=== PATIENT | male | born 1950 | race Caucasian/White ===

== ENCOUNTER 2016-06-05 00:40 | Emergency (ER) | payer OTHER ==
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
[~2016-06-05 00:40] MED LIST: ASPIRIN PO; BACTRIM DS TABL1 TAB PO; CEFDINIR300 MG; CLARITIN10 M2 PO; CLARITIN10 MG PO; DETROL PO; GLUCOPHAGE500 MG; HYDROCODON-ACE1 EAC9 PO; KEFLEX500 MG PO; METFORMIN PO; MOBIC PO; MONODOX100 MG PO; MYSOLINE250 MG PO; NEURONTIN PO; NORVASC PO; PRILOSEC PO; PRIMIDONE50 MG; SILVADENE TOP; TESSALON PERLE100 M1 PO; TYLENOL #3 PO; Z-PAK; ZESTRIL5 MG PO
== END 2016-06-05 01:20 | disposition home or self-care (01) ==
LOC: SED 00:40
DX: S46.911A Strain of unspecified muscle, fascia and tendon at shoulder and upper arm level, right arm, initial encounter (principal); S39.012A Strain of muscle, fascia and tendon of lower back, initial encounter; I10 Essential (primary) hypertension; E11.9 Type 2 diabetes mellitus without complications; S29.012A Strain of muscle and tendon of back wall of thorax, initial encounter; V89.2XXA Person injured in unspecified motor-vehicle accident, traffic, initial encounter; Y92.410 Unspecified street and highway as the place of occurrence of the external cause
CPT/HCPCS: 72040; 72072; 72100; 73030; 96372; 99284; J2360

== ENCOUNTER 2016-06-21 21:06 | Emergency (ER) | payer OTHER ==
--- NOTE | ~2016-06-21 | CR63 ---
[facility]. [facility] A Service of [facility] & [facility] / [facility] RADIOLOGY TEXT RESULTS PATIENT: MARIO VERGARA LOCATION: SED : 50 UNIT #: [id number] AGE: [address]: EPHRAIM WALTON SEX: M ORDER DR: [id number] [address] [id number] E MR#: [id number] Acc #: [id number] NAME: MARIO VERGARA : 1950 SEX: M STUDY DATE/TIME: 06/21/2016 21:06 UNIT: SED ROOM: STUDY DESCRIPTION: CR Chest 2 View Ordering Physician: Ephraim Walton Primary Care Physician: Domingo Cortez M.D. MEDICAL IMAGING REPORT This report is preliminary unless electronic signature is present. EXAM Chest PA and lateral 06/21/2016 HISTORY Left-side chest and rib pain status post fall on left side at 1700 today, tripped on sidewalk. FINDINGS The heart is normal in size. There is poor inspiratory result with bibasilar atelectasis. The lungs are otherwise clear. There are no pleural effusions. IMPRESSION No active pulmonary disease. Dictated by... Enrique Moran M.D. THIS IS AN ELECTRONICALLY VERIFIED REPORT Enrique Moran M.D. at 06/22/2016 2:28 PM KRT/pcl TD: 06/21/2016 22:37 JOB #: [id number] MEDICAL IMAGING REPORT Page 1 of 1
--- NOTE | ~2016-06-21 | CR278 ---
[facility]. [facility] A Service of [facility] & [facility] RADIOLOGY TEXT RESULTS PATIENT: MARIO VERGARA LOCATION: SED : [birth year] UNIT #: [id number] AGE: [address]: EPHRAIM WALTON SEX: M ORDER DR: [id number] [place] [id number] E MR#: [id number] Acc #: [id number] NAME: MARIO VERGARA : 1950 SEX: M STUDY DATE/TIME: 06/21/2016 21:06 UNIT: SED ROOM: STUDY DESCRIPTION: CR Wrist 2 View Lt Ordering Physician: Ephraim Walton Primary Care Physician: Domingo Cortez M.D. MEDICAL IMAGING REPORT This report is preliminary unless electronic signature is present. EXAM Left wrist 2 views 06/21/2016 HISTORY Left wrist pain status post fall today at 1700. Tripped on sidewalk. FINDINGS Wrist evaluation in multiple projections shows normal mineralization of the bony structures about the wrist and satisfactory articular relationship of the radius and ulna to the proximal carpal row and of the distal carpal segments to the metacarpal bases. There is no indication of fracture or dislocation, and no soft tissue radiopaque foreign body is present. No congenital defects are apparent. IMPRESSION Normal wrist. Dictated by... Enrique Moran M.D. THIS IS AN ELECTRONICALLY VERIFIED REPORT Enrique Moran M.D. at 06/22/2016 2:28 PM KRT/pcl TD: 06/21/2016 22:33 JOB #: [id number] MEDICAL IMAGING REPORT Page 1 of 1
== END 2016-06-21 22:00 | disposition home or self-care (01) ==
LOC: SED 21:06
DX: S20.212A Contusion of left front wall of thorax, initial encounter (principal); S63.502A Unspecified sprain of left wrist, initial encounter; J44.9 Chronic obstructive pulmonary disease, unspecified; E11.9 Type 2 diabetes mellitus without complications; I51.9 Heart disease, unspecified; W01.0XXA Fall on same level from slipping, tripping and stumbling without subsequent striking against object, initial encounter; Y92.410 Unspecified street and highway as the place of occurrence of the external cause
CPT/HCPCS: 29260; 71020; 73100; 99284